=== PATIENT | female | born 1940 | race African-American/Black ===

== ENCOUNTER 2022-04-18 08:46 | Emergency (ER) | payer MEDICARE ==
[2022-04-18 09:08] LABS: Bilirubin Negative (Negative); Blood, Urine Large (Negative); Clarity Cloudy (Clear); Glucose, Urine (Dipstick) 100 mg/dL (Negative); Ketone, Urine Negative (Negative); Leukocyte Moderate (Negative); Nitrite Negative (Negative); Protein, Urine (Dipstick) 100 mg/dL (Neg-Trace); Urobilinogen 0.2 mg/dL (Less than 2)
[2022-04-18] MEDS ORDERED: Phenazopyridine HCl 95 MG TAB ONE (09:08)
[2022-04-18] MEDS ORDERED: prednisoLONE 15 MG/5 ML UDCUP ONE (09:08)
[2022-04-18 09:12] LABS: Bacteria/HPF 1+ HPF (None Seen); RBC/HPF Greater than 50 HPF (0-3); Squamous Epithelial 0-3 HPF (0-3); WBC/HPF 21-50 HPF (0-3)
== END 2022-04-18 09:40 | disposition home or self-care (01) ==
LOC: BURERS 08:46
DX: N39.0 Urinary tract infection, site not specified (principal)
CPT/HCPCS: 81003; 81015; 99283; J7510